=== PATIENT | female | born 1960 | race Caucasian/White ===

== ENCOUNTER → 2016-08-13 | Outpatient (CLI) | payer OTHER ==
--- NOTE | 2016-08-13 13:39 | MR ---
EXAMINATION TYPE: MR tib fib RT wo/w con DATE OF EXAM: 08/13/2016 12:49 PM COMPARISON: NONE HISTORY: Mass right lower leg CONTRAST: Standard multiplanar, multisequence MRI departmental protocol with and without 20 mL intravenous Mult iHance gadolinium contrast. FINDINGS: The mass in question follows fat signal throughout sequences likely represents a lipoma. Th ere are lesions in both of the proximal tibias there are low in signal on T1 and high in signal on T2 and may represent geodes. On the T2-weighted sequences, there appears to be diffuse edema involving the gastrocnemius muscle on the right. There is no abnormal enhancement. IMPRESSION: 1. PROBABLE LIPOMA AT THE SITE OF CLINICAL CONCERN. 2. PROBABLE GEODES IN THE PROXIMAL TIBIAS BILATERALLY. CORRELATION WITH PLAIN FILM WOULD BE SUGGESTED . 3. DIFFUSE EDEMA OF THE RIGHT GASTROCNEMIUS MUSCLE OF UNCERTAIN ETIOLOGY.
== END | disposition home or self-care (01) ==
LOC: RADMRIMAIN 11:10
PROVIDERS: ATTEND Internal Medicine
DX: R60.0 Localized edema (principal)
CPT/HCPCS: 73720; A9577

== ENCOUNTER → 2016-12-17 | Outpatient (CLI) | payer OTHER ==
--- NOTE | 2016-12-17 15:11 | US ---
EXAMINATION TYPE: US carotid duplex BILAT DATE OF EXAM: 12/17/2016 COMPARISON: NONE CLINICAL HISTORY: R20.8 Other disturbances of skin sensation. Left sided facial numbness, h/o TIA EXAM MEASUREMENTS: RIGHT: Peak Systolic Velocity (PSV) cm/sec ----- Right CCA: 58.1 ----- Right ICA: 84.0 ----- Right ECA: 100.0 ICA/CCA ratio: 1.4 RIGHT: End Diastole cm/sec ----- Right CCA: 19.6 ----- Right ICA: 30.8 ----- Right ECA: 15.4 LEFT: Peak Systolic Velocity (PSV) cm/sec ----- Left CCA: 66.7 ----- Left ICA: 82.6 ----- Left ECA: 63.1 ICA/CCA ratio: 1.2 LEFT: End Diastole cm/sec ----- Left CCA: 23.2 ----- Left ICA: 35.5 ----- Left ECA: 12.6 VERTEBRALS (direction of flow): Right Vertebral: Antegrade Left Vertebral: Antegrade No significant plaque is noted at carotid bulb level bilaterally on grayscale images. Velocity measur ements and ratios are within normal limits in visualized portion of both internal carotid arteries. IMPRESSION: No hemodynamically significant stenosis is seen in either internal carotid artery.
== END | disposition home or self-care (01) ==
LOC: RADUSWWP 14:44
PROVIDERS: ATTEND Psychiatry & Neurology Neurology
DX: R20.8 Other disturbances of skin sensation (principal)
CPT/HCPCS: 93880

== ENCOUNTER → 2016-12-19 | Outpatient (CLI) | payer OTHER ==
[2016-12-19 08:05] LABS: Basophils # (A) 0.1 k/uL (0-0.2); Basophils % (A) 1 %; CH 33.2; CHCM 33.9; Eosinophils # (A) 0.3 k/uL (0-0.7); Eosinophils % (A) 4 %; HDW 2.45; Luc # (Auto) 0.15; Luc % (Auto) 2; Lymphocytes # (A) 2.3 k/uL (1.0-4.8); Lymphocytes % (A) 31 %; MCH 31.5 pg (25.0-35.0); MCHC 32.1 g/dL (31.0-37.0); MCV 98.2 fL (80.0-100.0); Mean Platelet Volume 7.3; Monocytes # (A) 0.6 k/uL (0-1.0); Monocytes % (A) 8 %; Neutrophils % (A) 54 %; RDW 14.1 % (11.5-15.5); WBC 7.4 k/uL (3.8-10.6); WBC (Perox) 7.21
[2016-12-19 08:21] LABS: ALT 39 U/L (9-52); AST 23 U/L (14-36); Alkaline Phosphatase 142 U/L (38-126); Anion Gap 8 mmol/L; Blood Urea Nitrogen 11 mg/dL (7-17); Calcium 9.2 mg/dL (8.4-10.2); Carbon Dioxide 28 mmol/L (22-30); Chloride 104 mmol/L (98-107); Cholesterol 193 mg/dL (<200); Glucose 100 mg/dL (74-99); HDL Cholesterol 60 mg/dL (40-60); Non-African American GFR(MDRD) >60 (>60 ml/min/1.73 sqM); Potassium 4.5 mmol/L (3.5-5.1); Sodium 140 mmol/L (137-145); Total Bilirubin 0.6 mg/dL (0.2-1.3); Triglycerides 144 mg/dL (<150)
[2016-12-19 15:48] LABS: Appearance,CSF Clear
[2016-12-21 15:14] LABS: Immunoglobulin G 978 mg/dL (700 - 1600)
[2016-12-22 14:43] LABS: Lyme Specimen Source Not Provided
== END | disposition home or self-care (01) ==
LOC: LABWHC1 07:32
PROVIDERS: ATTEND Psychiatry & Neurology Neurology
DX: G35 Multiple sclerosis (principal); I63.9 Cerebral infarction, unspecified; G72.9 Myopathy, unspecified
CPT/HCPCS: 36415; 80053; 80061; 82040; 82042; 82306; 82784; 83090; 83873; 83916; 84157; 85025; 87476; 88108; 89050

== ENCOUNTER → 2018-01-02 | Outpatient (CLI) | payer MEDICARE, OTHER ==
--- NOTE | 2018-01-02 21:23 | MR ---
EXAMINATION TYPE: MR tspine/lspine wo con DATE OF EXAM: 01/02/2018 COMPARISON: MRI lumbar spine November 19, 2014. MRI thoracic spine October 21, 2014. HISTORY: Thoracic spine pain and lumbago per order. Middle and low back pain with ruptured discus 200 8 per patient. TECHNIQUE: Multiplanar, multisequence imaging of the thoracic and lumbar spine are performed without IV contrast. FINDINGS: T-SPINE: FINDINGS: Spinal cord shows normal course, caliber, and signal as it courses the thoracic spine. Quyen tebral body heights and alignment are satisfactory. Disc space heights are fairly well maintained. Th ere is mild multilevel anterior spurring in the mid to lower thoracic spine redemonstrated. Bone mikal ow signal intensity is felt within normal limits. There are multiple posterior disc herniations effac ing the anterior thecal sac on sagittal T2 counting sequence in the cervical spine. There are machine molder squeeze ior disc herniations effacing the anterior thecal sac at T3-T4 through the T10-T11 level on sagittal images similar to prior 8. Most prominent disc herniations are redemonstrated T5-T6 through the T7-T8 levels on sagittal images. No significant change from prior. Axial images at T5-T6 level shows bilateral paracentral disc protrusions effacing anterolateral theca l sac worse on the left side on axial image 5 slightly more prominent versus prior. Axial images at the T6-T7 level shows more broad-based posterior disc protrusion effacing the anterio r thecal sac on axial image 2 not significantly changed from prior. Axial images at the T7-T8 levels with broad-based posterior disc protrusion effaces the anterior thec al sac on axial image 16 nearly up to ventral surface of spinal cord is not significant change from p rior. Axial images at the T8-T9 and T9-T10 level show posterior disc protrusions effacing the anterior thec al sac not significantly changed from prior. There is persistent posterior broad-based disc protrusio n effacing the anterior thecal sac at T10-T11 level not significantly changed from prior. No addition al disc herniations are seen on sagittal images. Visualized portion of the thorax and upper abdomen are unremarkable. IMPRESSION: Multilevel degenerative changes with most prominent disc herniations in the thoracic spin e redemonstrated. More prominent disc herniation T5-T6 level is noted otherwise no significant interv al change. L-SPINE Sagittal images of the lumbar spine show vertebral body heights to remain satisfactory. There is stab le straightening of lumbar spine redemonstrated. Multilevel disc desiccation is again seen. The disc space heights are fairly well-maintained. Posterior disc herniation L4-L5 level is redemonstrated on sagittal images. The conus medullaris remains normal in position and signal ending mid L1 level. The bone marrow signal intensity is within normal limits. Mild to moderate multilevel anterior spurring is redemonstrated. Axial images show the T12-L1 and L1-L2 levels to appear within normal limits. Axial images at L2-L3 level redemonstrates mild broad disc bulge but spinal canal is preserved and bi lateral neural foramina are patent. Mild bilateral facet degenerative changes are redemonstrated. Axial images at the L3-L4 level redemonstrate mild to moderate facet degenerative changes bilaterally . There is mild to moderate broad disc bulge. Slight spondylolisthesis is redemonstrated. The AP diam eter canal narrowing is again seen. Bilateral neural foramina are patent. No significant change from prior. Axial images at the L4-L5 level demonstrate mild to moderate left greater than right facet degenerati ve changes and ligamentum flavum hypertrophy efface the posterior lateral thecal sac. There is broad disc bulge with broad-based left paracentral/foraminal disc protrusion component effacing the anterio r thecal sac on axial image 7. There is asymmetric moderate left-sided neural foraminal narrowing. The neural foramina is patent. No significant change from prior. Axial images at the L5-S1 level we demonstrate mild to moderate such changes bilaterally. There is br oad-based posterior disc protrusion seen. Spinal canal is preserved. There is asymmetric mild left-si ded neural foraminal narrowing. Right-sided neuroforamen is patent. No significant change from prior. IMPRESSION: Multilevel degenerative changes of lumbar spine redemonstrated, most prominent findings a re again seen at the L3-L4 and L4-L5 levels as detailed above.
== END | disposition home or self-care (01) ==
LOC: RADMRIMAIN 14:55
PROVIDERS: ATTEND Psychiatry & Neurology Neurology
DX: M51.24 Other intervertebral disc displacement, thoracic region (principal); M47.814 Spondylosis without myelopathy or radiculopathy, thoracic region; M47.816 Spondylosis without myelopathy or radiculopathy, lumbar region; Z88.0 Allergy status to penicillin
CPT/HCPCS: 72146; 72148

== ENCOUNTER → 2020-01-01 | Outpatient (CLI) | payer MEDICARE ==
--- NOTE | 2020-01-05 08:46 | MM ---
Reason for exam: screening (asymptomatic). Last mammogram was performed 16 years and 3 months ago. History: Patient is postmenopausal and is nulliparous. Physical Findings: A clinical breast exam by your physician is recommended on an annual basis and results should be correlated with mammographic findings. MG 3D Screening Mammo W/Cad Bilateral CC and MLO view(s) were taken. CV view(s) were taken of the right breast. Prior study comparison: September 05, 2016, mammogram, performed at [facility]. October 12, 2003, bilateral diagnostic mammogram. There are scattered fibroglandular densities. Benign bilateral oil cysts. No significant changes when compared with prior studies. ASSESSMENT: Negative, BI-RAD 1 RECOMMENDATION: Routine screening mammogram of both breasts in 1 year.
== END | disposition home or self-care (01) ==
LOC: RADMAMWWP 15:20
PROVIDERS: ATTEND Family Medicine
DX: Z12.31 Encounter for screening mammogram for malignant neoplasm of breast (principal)
CPT/HCPCS: 77063; 77067

== ENCOUNTER → 2021-07-29 | Outpatient (CLI) | payer MEDICARE ==
--- NOTE | 2021-07-29 15:14 | MR ---
EXAMINATION TYPE: MR shoulder RT wo con DATE OF EXAM: 07/29/2021 COMPARISON: None HISTORY: Rt shoulder pain Multiplanar multiecho imaging of the right shoulder without contrast. There is minor spurring at the AC joint and mild subacromial impingement on the supraspinatus tendon and muscle. There is slight thickening and increased signal in the supraspinatus tendon over the top of the humeral head. This is consistent with partial tear. No retraction seen. There is a 1.5 cm area of fluid signal in the acromion process that could relate to old fracture. There is a small shoulder joint effusion with fluid accumulation adjacent to the supraspinatus tendon. The glenoid chirag appea r intact. Subscapularis tendon is intact. Biceps tendon is intact. There are small degenerative cysts in the humeral head on the superior aspect. IMPRESSION: Mild shoulder joint effusion consistent with some nonspecific synovitis. Small intrasubstance tears o f the supraspinatus tendon. No full-thickness tear. There is mild osteoarthritic narrowing of the gle nohumeral joint space. No fracture seen. Cystic area in the acromion at the attachment of the scapula appears benign and could relate to an old trauma.
== END | disposition home or self-care (01) ==
LOC: RADMRIMAIN 13:22
PROVIDERS: ATTEND Nurse Practitioner
DX: S46.911A Strain of unspecified muscle, fascia and tendon at shoulder and upper arm level, right arm, initial encounter (principal); M25.411 Effusion, right shoulder; X58.XXXA Exposure to other specified factors, initial encounter

== ENCOUNTER → 2023-07-10 | Outpatient (CLI) | payer MEDICARE, OTHER ==
--- NOTE | 2023-07-10 16:03 | CTL ---
EXAMINATION TYPE: CT Low Dose Lung DATE OF EXAM ORDERED: 07/10/2023 HISTORY: Everyday smoker with 35 pack year history.. Lung cancer screening CT DLP: 110.[address] CTDI: 3.33 mGy Automated exposure control for dose reduction was used. SCREENING VISIT: Baseline. COMPARISON: None available. TECHNIQUE: Low dose computed tomography scan was performed through the chest at 1 mm thick sections a nd reconstructed images in multiple planes at 1 mm and [address] DIAGNOSTIC QUALITY: Satisfactory FINDINGS: LUNG NODULES: There are no significant pulmonary nodules. LUNGS: COPD: Severity: None Fibrosis: Severity: None Lymph nodes: No adenopathy. Other findings: RIGHT PLEURAL SPACE: Effusion: None Calcification: None Thickening: None Pneumothorax: None LEFT PLEURAL SPACE: Effusion: None Calcification: None Thickening: None Pneumothorax: None HEART: Heart Size: Normal Coronary Calcification: None Pericardial Effusion: None OTHER FINDINGS: Upper abdomen: None Bony thorax: None Supraclavicular region: None Other: None IMPRESSION: Negative lung cancer screening examination for significant pulmonary nodules. CT LUNG RAD AND CT CHEST RECOMMENDATION: Lung-Rad 1 Negative: Continue annual screening with LDCT in 12 months. S Modifier (other clinically significant findings): None.
== END | disposition home or self-care (01) ==
LOC: RADCTMAIN 15:04
PROVIDERS: ATTEND Family Medicine
DX: Z12.2 Encounter for screening for malignant neoplasm of respiratory organs (principal); F17.210 Nicotine dependence, cigarettes, uncomplicated
CPT/HCPCS: 71271